=== PATIENT | female | born 1965 | race Caucasian/White ===

== ENCOUNTER → 2017-01-15 | Outpatient (CLI) | payer OTHER ==
--- NOTE | 2017-01-15 09:30 | CT ---
EXAMINATION TYPE: CT sinus wo con DATE OF EXAM: 01/15/2017 COMPARISON: NONE HISTORY: Chronic sinusitis, per order. Symptoms of headaches, loss of taste and smell for 2 1/[address] DLP: 593.60 mGycm. Automated Exposure Control for Dose Reduction was Utilized. TECHNIQUE: CT scan of the sinuses is performed without contrast, axial images are obtained, coronal r eformatted images are also reviewed. FINDINGS: There is fairly moderate mucosal thickening and small caliber bilateral maxillary sinuses. There is mild mucosal thickening seen in the inferior aspect of bilateral ethmoid sinuses. There is m ild mucosal thickening in the periphery of the smaller caliber left sphenoid sinus. There is patchy o pacification also seen anteriorly and inferiorly near axial image 22 at this level. The ostiomeatal c omplex is LOC bilaterally on coronal images due to antral mucosal thickening. Nasal septum is slightl y deviated to left of midline. Visualized portion of mastoid air cells show no abnormal opacification. The globes are intact bilate rally. IMPRESSION: Acute left sphenoid sinusitis suspected on background of chronic paranasal sinus disease as detailed above. Both ostiomeatal complexes appear blocked due to focal mucosal thickening at the m axillary antral level.
== END | disposition home or self-care (01) ==
LOC: RADCTMAIN 07:21
PROVIDERS: ATTEND Otolaryngology
DX: J34.89 Other specified disorders of nose and nasal sinuses (principal); J32.9 Chronic sinusitis, unspecified; R13.10 Dysphagia, unspecified
CPT/HCPCS: 70486

== ENCOUNTER 2019-01-10 10:13 | Day surgery (SDC) | payer OTHER ==
[2019-01-09 13:50] VITALS: BMI 32.5
[~2019-01-10 10:13] MED LIST: LACTATED RINGERS 1,000 ML IV SCH; LIDOCAINE 1% 20 ML VIAL (10MG/ML) FOR IV START INTRADERMA PRN
[2019-01-10 10:32] VITALS: RESP 16; TEMP 97.1
[2019-01-10] MEDS ORDERED: fentaNYL (PF) 50 MCG/ML 2 ML AMP ONE (10:56)
[2019-01-10] MEDS ORDERED: LIDOCAINE 1% INJ 10MG/ML (20 ML MDV) ONE (10:56)
[2019-01-10] MEDS ORDERED: GLYCOPYRROLATE 0.2 MG/ML 2 ML VIAL ONE (10:56)
[2019-01-10] MEDS ORDERED: MIDAZOLAM 2 MG/2 ML VIAL ONE (10:56)
--- NOTE | 2019-01-10 11:23 | P.PCN ---
Date of Procedure: 01/10/19 Description of Procedure: BRIEF HISTORY: Patient is a 53-year-old, pleasant, female patient who presents for outpatient EGD. She reports symptoms of globus, esophageal dysphagia and has been treated for reflux the past with omeprazole daily. PROCEDURE PERFORMED: Esophagogastroduodenoscopy with biopsy. PREOPERATIVE DIAGNOSIS: Esophageal dysphagia, GERD, other symptoms involving circulatory and respiratory. ESTIMATED BLOOD LOSS: Minimal. IV sedation per anesthesia. PROCEDURE: After informed consent was obtained, the patient was brought into the endoscopy unit. IV sedation was administered by Anesthesia under continuous monitoring. Initially the Olympus GIF-190 video endoscope was inserted into the mouth. Esophagus intubated without any difficulty. It was gradually advanced into the stomach and duodenum and carefully examined. The bulb and the second part of the duodenum appeared normal, with biopsies taken. The scope at this time was withdrawn to the stomach, adequately insufflated with air, and upon careful examination, mucosa of the antrum, body, cardia and the fundus appeared normal, except for some mild scattered erythema in the antrum and body suggestive of mild gastritis with biopsies to. The scope was then withdrawn into the esophagus, a 2 cm hiatal hernia was noted. The GE junction was located at 37 cm from the incisors. The esophagus appeared normal with mid esophageal biopsies taken in the setting of dysphagia. There were no erosions or ulcerations seen and the patient tolerated the procedure well. IMPRESSION: 1. Mild gastritis antrum body, biopsied. 2. Small hiatal hernia. 3. GE junction biopsies. 4. Duodenal biopsies. RECOMMENDATIONS: The findings of this examination were discussed with the patient and her son. Okay to resume diet. Await pathology from biopsies. No strictures, masses or other findings to explain symptoms of proximal esophageal dysphagia/globus.
[2019-01-10 11:33] VITALS: BP 118/76; PULSE 96
== END 2019-01-10 11:47 | disposition home or self-care (01) ==
LOC: ORWHC2ENDO 10:13
PROVIDERS: ATTEND Internal Medicine
DX: K44.9 Diaphragmatic hernia without obstruction or gangrene (principal); K29.50 Unspecified chronic gastritis without bleeding; K20.0 Eosinophilic esophagitis; K21.9 Gastro-esophageal reflux disease without esophagitis; R13.14 Dysphagia, pharyngoesophageal phase; Z79.899 Other long term (current) drug therapy; Z88.5 Allergy status to narcotic agent; Z88.0 Allergy status to penicillin; Z82.0 Family history of epilepsy and other diseases of the nervous system; Z90.49 Acquired absence of other specified parts of digestive tract; Z98.51 Tubal ligation status; J45.909 Unspecified asthma, uncomplicated
CPT/HCPCS: 88305; 43239; J2250; J2001; J3010

== ENCOUNTER → 2019-12-21 | Outpatient (CLI) | payer OTHER ==
--- NOTE | 2019-12-21 10:11 | CT ---
EXAMINATION TYPE: CT adrenal glands wo/w con DATE OF EXAM: 12/21/2019 HISTORY: Left adrenal mass CT DLP: 1575.7mGycm Automated Exposure Control for Dose Reduction was Utilized. CONTRAST: CT scan of the abdomen is performed with oral and without and with IV Contrast, patient injected with 100 mL of Isovue 300. Adrenal gland protocol. COMPARISON: None. FINDINGS: LUNG BASES: No significant abnormality is appreciated. LIVER/GB: Cholecystectomy clips are seen. Liver is markedly low dense consistent with diffuse fatty infiltration on noncontrast images. PANCREAS: No significant abnormality is seen. SPLEEN: No significant abnormality is seen. ADRENALS: There is a small 1.7 x 1.4 cm left adrenal mass. Hounsfield units average 7 on the noncontr ast images. There is enhancement to 50 Hounsfield units on 1 minute postcontrast images and washout t o 14 Hounsfield units on delayed images. Dynamic imaging characteristics are consistent with benign l ipid rich adenoma. KIDNEYS: Noncontrast images show no renal calculi bilaterally. Postcontrast images show symmetric cor tical medullary uptake and excretion without hydronephrosis or concerning renal mass bilaterally. BOWEL: Oral contrast reaches level of cecum. No suspicious small or large bowel dilatation. UTERUS/ADNEXA: There is heterogeneous lobulated soft tissue mass in the visualized upper to mid pelvi s extending into the right lower quadrant, suspect enlarged fibroid uterus. Correlate clinically. Pel natty ultrasound can be performed to further evaluate or confirm if desired. LYMPH NODES: No greater than 1cm abdominal lymph nodes are appreciated. OSSEOUS STRUCTURES: Moderate to severe disc space narrowing with vacuum disc phenomenon L5-S1 level. OTHER: Small to moderate-sized fat-containing umbilical hernia. IMPRESSION: There is small 1.7 cm left adrenal mass. This study shows characteristics consistent with benign lipid rich adenoma. Probable enlarged lobulated fibroid uterus, correlate clinically. Marked fatty infiltration of liver noted.
== END | disposition home or self-care (01) ==
LOC: RADCTMAIN 07:56
PROVIDERS: ATTEND Family Medicine
DX: E27.8 Other specified disorders of adrenal gland (principal); K76.0 Fatty (change of) liver, not elsewhere classified
CPT/HCPCS: 74170; Q9967

== ENCOUNTER → 2022-02-11 | Outpatient (CLI) | payer OTHER ==
--- NOTE | 2022-02-11 15:21 | CT ---
EXAMINATION TYPE: CT chest wo con DATE OF EXAM: 02/11/2022 COMPARISON: None HISTORY: Chronic cough CT DLP: [address] of the chest was performed with lung and mediastinal window settings submitted. The la ck of contrast limits evaluation of the vascular, mediastinal and parenchymal structures including th e upper abdomen. LUNGS: The lungs are clear and free of infiltrate. No atelectasis. No pulmonary nodule or mass is de tected. No pleural effusion. No CT evidence of interstitial lung disease. MEDIASTINUM/ALO: Thoracic aorta is of normal caliber with limited evaluation given lack of contrast . The heart is not enlarged. No evidence for mediastinal mass. No lymph nodes greater than 1cm. UPPER ABDOMEN: No significant abnormality is seen. OTHER: No significant other abnormality. IMPRESSION: 1. No significant abnormality appreciated at this time.
== END | disposition home or self-care (01) ==
LOC: RADCTMAIN 14:30
PROVIDERS: ATTEND Family Medicine
DX: R05.3 Chronic cough (principal)
CPT/HCPCS: 71250

== ENCOUNTER → 2022-06-25 | Outpatient (CLI) | payer OTHER ==
--- NOTE | 2022-06-25 11:23 | MM ---
Reason for Exam: Clinical finding. Last mammogram was performed 1 year(s) and 4 month(s) ago. Patient History: Menarche at age 12. First Full-Term at age 25. Postmenopausal. Risk Values: Christy 5 year model risk: 1.4%. NCI Lifetime model risk: 8.7%. Prior Study Comparison: 08/08/2018 Bilateral Screening Mammogram, [facility]. 02/21/2021 Bilateral Screening Mammogram, [facility]. Tissue Density: The breast tissue is heterogeneously dense. This may lower the sensitivity of mammography. Findings: Analyzed By CAD. Left breast asymmetry lateral aspect on CC view 13th images from nipple measuring 10 mm. Posterior nipple line at 12:00 tubular structures. No new suspicious calcifications. Overall Assessment: Incomplete: need additional imaging evaluation, BI-RAD 0 Management: Diagnostic Breast Ultrasound of both breasts. A clinical breast exam by your physician is recommended on an annual basis and results should be correlated with mammographic findings. This exam should not preclude additional follow-up of suspicious palpable abnormalities. Results were given to the patient verbally at the time of exam. Electronically signed and approved by: Akash Clarke DO
--- NOTE | 2022-06-25 11:27 | USB ---
Reason for Exam: Clinical finding. Patient History: Menarche at age 12. First Full-Term at age 25. Postmenopausal. Risk Values: Christy 5 year model risk: 1.4%. NCI Lifetime model risk: 8.7%. Prior Study Comparison: 08/08/2018 Bilateral Screening Mammogram, [facility]. 02/21/2021 Bilateral Screening Mammogram, [facility]. Findings: The upper outer quadrant of the right breast, the lateral section of the breast of the left breast, the axilla of the left breast and the retroareolar of the left breast were scanned. Bilateral breast ultrasound within the left breast in the area of concern as well as the retroareolar region and axilla. Additionally the right breast also in the area of concern was evaluated Right breast follow-up of 12:00 2 cm from nipple tubular structures which are predominantly anechoic/hypoechoic. These are grossly similar to prior given differences from 03/17/2021 ultrasound technique. Left breast 3:00 examination of bowel suspected complicated cyst versus involuting cyst. Overall Assessment: Probably benign, BI-RAD 3 Management: Diagnostic Breast Ultrasound of both breasts in 6 months. A clinical breast exam by your physician is recommended on an annual basis and results should be correlated with mammographic findings. This exam should not preclude additional follow-up of suspicious palpable abnormalities. Results were given to the patient verbally at the time of exam. Electronically signed and approved by: Akash Clarke DO
== END | disposition home or self-care (01) ==
LOC: RADMAMWWP 10:03
PROVIDERS: ATTEND Family Medicine
DX: R92.2 Inconclusive mammogram (principal); Z78.0 Asymptomatic menopausal state
CPT/HCPCS: 77062; 77066

== ENCOUNTER → 2023-03-11 | Outpatient (CLI) | payer OTHER ==
--- NOTE | 2023-03-11 13:16 | USB ---
Reason for Exam: Follow-up at short interval from prior study. Patient History: Menarche at age 12. First Full-Term at age 25. Postmenopausal. Risk Values: Christy 5 year model risk: 1.4%. NCI Lifetime model risk: 8.7%. Technique: Method: Targeted. Prior Study Comparison: 08/08/2018 Bilateral Screening Mammogram, [facility]. 02/21/2021 Bilateral Screening Mammogram, [facility]. 06/25/2022 [facility] breast limited [facility], [facility]. Findings: The upper section of the breast of the right breast, the lateral section of the breast of the right breast, the lower inner quadrant of the left breast, the axilla of both breasts and the retroareolar of both breasts were scanned. Cluster of cysts is unchanged right 12:00 location measuring 6 mm. No solid mass is seen. Cyst left 3:00 position is smaller in size at 4 mm.. Overall Assessment: Benign, BI-RAD 2 Management: Screening Mammogram of both breasts in 6 months. A clinical breast exam by your physician is recommended on an annual basis and results should be correlated with mammographic findings. This exam should not preclude additional follow-up of suspicious palpable abnormalities. Results were given to the patient verbally at the time of exam. Electronically signed and approved by: Enoc Porter M.D. Radiologis
== END | disposition home or self-care (01) ==
LOC: RADUSWWP 12:12
PROVIDERS: ATTEND Obstetrics & Gynecology
DX: N60.02 Solitary cyst of left breast (principal); R92.8 Other abnormal and inconclusive findings on diagnostic imaging of breast; Z78.0 Asymptomatic menopausal state

== ENCOUNTER → 2023-09-15 | Outpatient (CLI) | payer OTHER ==
--- NOTE | 2023-09-16 20:57 | MM ---
Reason for Exam: Screening (asymptomatic). Last mammogram was performed 1 year(s) and 3 month(s) ago. Patient History: Menarche at age 12. First Full-Term at age 25. Postmenopausal. Patient has history of breast feeding. Risk Values: Christy 5 year model risk: 1.5%. NCI Lifetime model risk: 8.5%. Prior Study Comparison: 08/08/2018 Bilateral Screening Mammogram, [facility]. 02/21/2021 Bilateral Screening Mammogram, [facility]. 06/25/2022 Bilateral MG 3D diag mammo w/cad [facility], [facility]. Tissue Density: There are scattered areas of fibroglandular density. Findings: Analyzed By CAD. Global asymmetry left upper outer quadrant is unchanged. Asymmetric density superior right MLO view anterior depth and inferior right MLO view to posterior depth are more defined. These may represent superimposition shadow but further evaluation is recommended. Otherwise, no significant change. Overall Assessment: Incomplete: need additional imaging evaluation, BI-RAD 0 Management: Special View Mammogram of the right breast. [facility] will attempt to contact patient to return for supplemental views and ultrasound if indicated. Electronically signed and approved by: Matt Mcgill M.D. Radiologist
== END | disposition home or self-care (01) ==
LOC: RADMAMWWP 10:12
PROVIDERS: ATTEND Obstetrics & Gynecology
DX: Z12.31 Encounter for screening mammogram for malignant neoplasm of breast (principal); Z78.0 Asymptomatic menopausal state
CPT/HCPCS: 77067

== ENCOUNTER → 2023-10-07 | Outpatient (CLI) | payer OTHER ==
--- NOTE | 2023-10-07 10:54 | MM ---
Reason for Exam: Additional evaluation requested from abnormal screening. Last screening mammogram was performed less than 1 month ago. Patient History: Menarche at age 12. First Full-Term at age 25. Postmenopausal. Patient has history of breast feeding. Currently using Estrogen and Progesterone, starting at age 57. Maternal aunt had breast cancer at or over age 50. Risk Values: Christy 5 year model risk: 1.5%. NCI Lifetime model risk: 8.5%. Prior Study Comparison: 08/08/2018 Bilateral Screening Mammogram, [facility]. 02/21/2021 Bilateral Screening Mammogram, [facility]. 06/25/2022 Bilateral MG 3D diag mammo w/cad [facility], [facility]. 09/15/2023 Bilateral MG screening mammo w CAD, [facility]. Tissue Density: Right: The breasts are heterogeneously dense, which may obscure small masses. Findings: Analyzed By CAD. No evidence for mass or distortion. No suspicious calcifications. Overall Assessment: Negative, BI-RAD 1 Management: Screening Mammogram of both breasts in 1 year. . Results were given to the patient verbally at the time of exam. Patient should continue monthly self-breast exams. A clinical breast exam by your physician is recommended on an annual basis. This exam should not preclude additional follow-up of suspicious palpable abnormalities. Note on Christy scores and lifetime risk: 1. A Christy score greater than 3% is considered moderate risk. If this is the case, consider specialist referral to assess eligibility for a risk reducing agent. 2. If overall lifetime risk for the development of breast cancer is 20% or higher, the patient may qualify for future screening with alternating mammogram and breast MRI. Electronically signed and approved by: Enoc Porter M.D. Radiologis
== END | disposition home or self-care (01) ==
LOC: RADMAMWWP 10:21
PROVIDERS: ATTEND Obstetrics & Gynecology
DX: R92.331 Mammographic heterogeneous density, right breast (principal); R92.8 Other abnormal and inconclusive findings on diagnostic imaging of breast; Z78.0 Asymptomatic menopausal state; Z80.3 Family history of malignant neoplasm of breast
CPT/HCPCS: 77061; 77065